=== PATIENT | male | born 1975 | race Hispanic/Latino ===

== ENCOUNTER 2018-10-02 13:32 | Emergency (ER) | payer BC ==
[2018-10-02 13:49] VITALS: BMI 43.0
[2018-10-02 13:50] VITALS: RESP 18; TEMP 98.5
[2018-10-02] MEDS ORDERED: Sodium Chloride 0.9% 1,000 ML IV STA (14:11)
[2018-10-02] MEDS ORDERED: Atrop/Hyosc/Scopal/PB Elixir (120 ml) PO STA (14:11)
[2018-10-02] MEDS ORDERED: Alum-Mag Hydrox-Simethicone Susp (30 mL) PO STA (14:11)
--- NOTE | 2018-10-02 14:13 | ED PDOC ---
Arrival/HPI - General Chief Complaint: Abdominal Pain Historian: Patient - History of Present Illness Narrative History of Present Illness (Text): 10/02/18 14:12 43 year old male, with no significant past medical history, presents to the emergency department complaining of abdominal pain for the past 2 days. Patient notes associated fatigue, diarrhea, and sweating while he sleeps. He also reports secondary back pain and unable to urinate 1 day, but that has been resolved since. Patient denies headache, dizziness, chest pain, shortness of breath, dyspnea on exertion, cough, vomiting, back pain, neck pain, or any other complaint. Time/Duration: < week (2 days) Symptom Onset: Gradual Symptom Course: Unchanged Activities at Onset: Light Context: Home Past Medical History - Provider Review Nursing Documentation Reviewed: Yes - Infectious Disease Hx of Infectious Diseases: None - Psychiatric Hx Substance Use: No - Surgical History Other/Comment: LIp Surgery. Cysts removed from genital Family/Social History - Physician Review Nursing Documentation Reviewed: Yes Family/Social History: No Known Family HX Smoking Status: Never Smoked Hx Alcohol Use: No Hx Substance Use: No Allergies/Home Meds Allergies/Adverse Reactions: Allergies No Known Allergies Allergy (Verified 10/02/18 13:49) Home Medications: Home Meds Medication Instructions Recorded Confirmed No Known Home Med 10/02/18 10/02/18 Review of Systems - Physician Review All systems were reviewed & negative as marked: Yes - Review of Systems Respiratory: absent: SOB, Cough Cardiovascular: absent: Chest Pain Gastrointestinal: Abdominal Pain, Diarrhea. absent: Nausea, Vomiting Genitourinary Male: absent: Dysuria, Frequency Musculoskeletal: absent: Back Pain, Neck Pain Neurological: absent: Headache, Dizziness Physical Exam Vital Signs Reviewed: Yes Vital Signs Temp Pulse Resp BP Pulse Ox 10/02/18 13:49 98.5 F 118 H 18 130/89 97 Temperature: Afebrile Blood Pressure: Normal Pulse: Tachycardic Respiratory Rate: Normal Appearance: Positive for: Well-Appearing, Non-Toxic, Comfortable Pain Distress: None Mental Status: Positive for: Alert and Oriented X 3 - Systems Exam Head: Present: Atraumatic, Normocephalic Pupils: Present: PERRL Extroacular Muscles: Present: EOMI Conjunctiva: Present: Normal Mouth: Present: Moist Mucous Membranes Neck: Present: Normal Range of Motion Respiratory/Chest: Present: Clear to Auscultation, Good Air Exchange. No: Respiratory Distress, Accessory Muscle Use Cardiovascular: Present: Regular Rate and Rhythm, Normal S1, S2. No: Murmurs Abdomen: Present: Tenderness (generalized tenderness to palpation ), Distention. No: Peritoneal Signs Back: Present: Paraspinal Tenderness (right lower paraspinal lumbar tenderness) Upper Extremity: Present: Normal Inspection. No: Cyanosis, Edema Lower Extremity: Present: Normal Inspection. No: Edema Neurological: Present: GCS=15, CN II-XII Intact, Speech Normal Skin: Present: Warm, Dry, Normal Color. No: Rashes Psychiatric: Present: Alert, Oriented x 3, Normal Insight, Normal Concentration Medical Decision Making ED Course and Treatment: 10/02/18 14:13 Impression: 43 year old male who presents to the emergency department complaining of abdominal pain. Differential Diagnosis included but are not limited to: gastritis gastroenteritis Plan: -- Labs -- Maalox -- Elixir -- Pepcid -- IV Fluids -- Urinalysis -- Reassess and disposition Progress Notes: 10/02/18 17:24 Labs reviewed with mild leukocytosis noted with no shift. Patient reports improvement in - Lab Interpretations Lab Results: 10/02/18 14:40 10/02/18 14:40 Lab Results 10/02/18 16:20: Urine Color Yellow, Urine Appearance Clear, Urine pH 6.0, Ur Specific [place] >= 1.030, Urine Protein Negative, Urine Glucose (UA) Negative, Urine Ketones Negative, Urine Blood Negative, Urine Nitrate Negative, Urine Bilirubin Negative, Urine Urobilinogen 0.2, Ur Leukocyte Esterase Negative 10/02/18 14:40: Sodium 140, Potassium 4.0, Chloride 105, Carbon Dioxide 28, Anion Gap 11, BUN 14, Creatinine 0.9, Est GFR ( Amer) > 60, Est GFR (Non- Af Amer) > 60, Random Glucose 149 H, Calcium 9.8, Magnesium 2.0, Total Bilirubin 0.3, AST 24, ALT 23, Alkaline Phosphatase 94, Total Protein 8.0, Albumin 4.4, Globulin 3.6, Albumin/Globulin Ratio 1.2, Lipase 39 10/02/18 14:40: PT 13.8 H, INR 1.24, APTT 34.7 10/02/18 14:40: WBC 11.6 H, RBC 4.85, Hgb 14.6, Hct 42.3, MCV 87.2, MCH 30.1, MCHC 34.5, RDW 13.0, Plt Count 298, MPV 10.1, Neut % (Auto) 72.0 H, Lymph % (Auto) 19.3 L, [place] % (Auto) 7.8 H, Eos % (Auto) 0.6 L, Baso % (Auto) 0.3, Lymph # (Auto) 2.2, [place] # (Auto) 0.9 H, Eos # (Auto) 0.1, Baso # (Auto) 0.03, Absolute Neuts (auto) 8.35 H I have reviewed the lab results: Yes - Scribe Statement The provider has reviewed the documentation as recorded by the Scribe Tracie Reyes Provider Scribe Attestation: All medical record entries made by the Scribe were at my direction and personally dictated by me. I have reviewed the chart and agree that the record accurately reflects my personal performance of the history, physical exam, medical decision making, and the department course for this patient. I have also personally directed, reviewed, and agree with the discharge instructions and disposition. Disposition/Present on Arrival - Present on Arrival Any Indicators Present on Arrival: No History of DVT/PE: No History of Uncontrolled Diabetes: No Urinary Catheter: No History of Decub. Ulcer: No History Surgical Site Infection Following: None - Disposition Have Diagnosis and Disposition been Completed?: Yes Diagnosis: Gastroenteritis Disposition: HOME/ ROUTINE Disposition Time: 16:57 Patient Plan: Discharge Patient Problems: Current Active Problems Problem Status Onset Gastroenteritis Acute Condition: IMPROVED Discharge Instructions (ExitCare): Gastritis (DC), Gastroenteritis (ED) Print Language: GREEK Additional Instructions: All medical record entries made by the Scribe were at my direction and personally dictated by me. I have reviewed the chart and agree that the record accurately reflects my personal performance of the history, physical exam, medical decision making, and the department course for this patient. I have also personally directed, reviewed, and agree with the discharge instructions and disposition. Please monitor your symptoms and keep yourself hydrated Please visit your PCP in 3-5 days Referrals: Ni Vargas MD [Primary Care Provider] - Follow up with primary Forms: [facility] (Welsh), WORK NOTE
[2018-10-02 14:54] LABS: BASO # 0.03 K/mm3 (0.0-2.0); BASO % 0.3 % (0.0-3.0); EOS # 0.1 (0.0-0.7); EOS % 0.6 % (1.5-5.0); HEMOGLOBIN 14.6 g/dL (14.0-18.0); LYMPH # 2.2 (1.2-3.4); LYMPH % 19.3 % (22.0-35.0); MEAN CELL VOLUME 87.2 fl (80.0-105.0); MEAN CORPUSCULAR HEMOGLOBIN 30.1 pg (25.0-35.0); MEAN CORPUSCULAR HGB CONC 34.5 g/dl (31.0-37.0); MEAN PLATELET VOLUME 10.1 fl (7.0-11.0); MONO # 0.9 (0.1-0.6); MONO % 7.8 % (1.0-6.0); RBC 4.85 10^6/uL (3.5-6.1); WHITE BLOOD COUNT 11.6 10^3/uL (4.5-11.0)
[2018-10-02 15:03] LABS: INR 1.24; PARTIAL THROMBOPLASTIN TIME 34.7 Seconds (26.9-38.3); PROTHROMBIN TIME 13.8 SECONDS (9.4-12.5)
[2018-10-02 15:04] LABS: ALB/GLOB RATIO 1.2 (1.1-1.8); ALBUMIN 4.4 g/dL (3.0-4.8); ALT/SGPT 23 U/L (7-56); AST/SGOT 24 U/L (17-59); BLOOD UREA NITROGEN 14 mg/dL (7-21); CALCIUM 9.8 mg/dL (8.4-10.5); GFR NON-AFRICAN AMERICAN > 60; LIPASE 39 U/L (23-300)
[2018-10-02 16:35] LABS: URINE APPEARANCE CLEAR (CLEAR); URINE BILIRUBIN NEGATIVE (NEGATIVE); URINE BLOOD NEGATIVE (NEGATIVE); URINE COLOR YELLOW (YELLOW); URINE GLUCOSE (UA) NEGATIVE (NEGATIVE); URINE LEUKOCYTE ESTERASE NEGATIVE Leu/uL (NEGATIVE); URINE PROTEIN NEGATIVE mg/dL (<30 mg/dL); URINE UROBILINOGEN 0.2 E.U./dL (<1 E.U./dL)
[2018-10-02 17:25] VITALS: BP 127/76; PULSE 88; O2SAT 99
== END 2018-10-02 17:25 | disposition home or self-care (01) ==
LOC: ED 13:32
DX: K52.9 Noninfective gastroenteritis and colitis, unspecified (principal)
CPT/HCPCS: 80053; 81003; 83690; 83735; 85025; 85610; 85730; 96374; 99284; J7030